=== PATIENT | male | born 1995 | race Caucasian/White ===

== ENCOUNTER 2017-07-15 21:36 | Emergency (ER) | payer OTHER ==
[2017-07-15] MEDS ORDERED: LORazepam 1 MG TAB PO ONE (22:15)
--- NOTE | 2017-07-15 22:27 | EDPHY ---
H & P Stated Complaint: SI Source: Patient, EMS Exam Limitations: No limitations - Medical/Surgical History Other PMH: hx DM, bipolar, SI Time Seen by Provider: 07/15/17 21:52 HPI/ROS: HPI The patient presents with suicidal ideation, brought in on a M1 hold placed by [place] [employer] just prior to arrival. His roommate and girlfriend called the police because the patient was holding a gun to his head. He said he was just playing with the gone and it was unloaded, however he had gone to load the gone and that is when the roommate called 911. The patient says that he feels suicidal almost daily for many years. He does think his suicidal thoughts have been increasing lately. He thinks about jumping off of a bridge or shooting himself. He says he has multiple psychiatric diagnoses including anxiety, depression, bipolar, PTSD, dissociated identity disorder. He was initially diagnosed at about 12 years old when he had a suicide attempt. He has been hospitalized in psychiatric facilities before, last in March of this year. He is not currently on any psychiatric medications as he believes they do not help him though does take Ativan p.r.n.. Last night he does report that he had a severe panic attack that awoke him from sleep. He denies any alcohol or drug use. He is currently establishing himself with [facility] and has upcoming psychologist and psychiatrist appointments. He reports a baseline resting heart rate of 110-130 beats per minute. REVIEW OF SYSTEMS Constitutional: No fever, no chills. Eyes: No discharge. ENT: No sore throat. Cardiovascular: No chest pain, no palpitations. Respiratory: No cough, no shortness of breath. Gastrointestinal: No abdominal pain, no vomiting. Genitourinary: No hematuria. Musculoskeletal: No back pain. Skin: No rashes. Neurological: No headache. 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, relocated to [place] from [place] in April, lives with a roommate PHYSICAL General Appearance: Alert, no distress Eyes: Pupils equal and round no pallor or injection ENT, Mouth: Mucous membranes moist Respiratory: There are no retractions, lungs are clear to auscultation Cardiovascular: Tachycardic with regular rhythm Gastrointestinal: Abdomen is soft and non-tender, no masses, bowel sounds normal Neurological: A&O, moves all extremities Skin: Warm and dry, no rashes Musculoskeletal: Neck is supple non tender Extremities: symmetrical, full range of motion Psychiatric: Patient is oriented X 3, there is no agitation (Meghna Lucero) Constitutional: Initial Vital Signs Temperature (C) 36.9 C 07/15/17 21:40 Heart Rate 144 H 07/15/17 21:40 Respiratory Rate 18 07/15/17 21:40 Blood Pressure 125/88 H 07/15/17 21:40 O2 Sat (%) 94 07/15/17 21:40 O2 Delivery Mode Room Air Allergies/Adverse Reactions: erythromycin base Allergy (Mild, Verified 07/15/17 21:55) Home Medications: Medication Instructions Recorded Ativan 07/15/17 Medical Decision Making ED Course/Re-evaluation: 11am The patient accepted at [facility] by Tania Sepulveda. He also needs his insulin pump refilled which we will discuss with pharmacy and here in the department. 2:15 p.m. psychiatric facility accepting the patient requested that he receive insulin and not be transferred until his glucose is below 250. His repeat glucose is still elevated. He will give himself another bolus through his pump. He does not have an anion gap. 2:55 p.m. the patient took another 5 unit bolus of subcu insulin. This time will not feed him as well. Will recheck it otherwise he is medically cleared for psychiatric hospitalization. Care transferred to Dr. Erin Reilly at shift change. (Deonte Matute) 3:00 p.m.-I assumed care of this patient at shift change. 4 p.m.-Accepted to [facility]. (Erin Reilly) Differential Diagnosis: This is a 21-year-old male with history of type 1 diabetes on insulin pump, psychiatric disease with anxiety and depression, who presents from home brought in by ambulance on an M1 hold placed by police prior to arrival for suicidal ideation. The patient's roommate called the police because he was playing with a gun, pointing at at his head and she was concerned that he was going to commit suicide. On exam, the patient is notably tachycardic at about 140. He otherwise has a normal physical exam. He does tell me that his heart rate is normally 110-130 and he suspects this is due to his anxiety. I have offered him a dose of Ativan and he would like to take this. I will give him p. O. Fluids to begin with. Laboratories were checked and were unremarkable except for UA positive for benzodiazepines. The patient does take Ativan p.r.n.. His glucose is 155. He is medically clear. 6:45 a.m.- Patient has been stable throughout the night. He was able to rest. His tachycardia resolved. He is awaiting mental health evaluation this morning by [facility]. The case will be signed out to the oncoming provider Dr. Matute pending evaluation. (Meghna Lucero) - Data Points Laboratory Results: Laboratory Results 07/15/17 21:10 07/16/17 13:44 07/16/17 07/16/17 07/16/17 15:55 13:44 12:20 Smear Review By Sodium 141 mEq/L mEq/L (135-145) Potassium 4.1 mEq/L mEq/L (3.5-5.2) Chloride 105 mEq/L mEq/L (97-110) Carbon Dioxide 26 mEq/l mEq/l (22-31) Anion Gap 10 mEq/L mEq/L (8-16) BUN 15 mg/dL mg/dL (7-23) Creatinine 0.8 mg/dL mg/dL (0.7-1.3) Estimated GFR > 60 Glucose 298 mg/dL H mg/dL (70-100) POC Glucose 170 mg/dL H mg/dL 340 mg/dL H mg/dL (70-100) (70-100) Calcium 9.0 mg/dL mg/dL (8.5-10.4) 07/16/17 07/15/17 11:42 21:10 Smear Review By Jeniffer PEARSON MD Sodium Potassium Chloride Carbon Dioxide Anion Gap BUN Creatinine Estimated GFR Glucose POC Glucose 299 mg/dL H mg/dL (70-100) Calcium Medications Given: Discontinued Medications Insulin Human Lispro (Humalog Lispro) 0 unit SC EDNOW ONE Stop: 07/16/17 11:31 Last Admin: 07/16/17 11:35 Dose: 100 unit Lorazepam (Ativan) 1 mg PO EDNOW ONE Stop: 07/15/17 22:16 Last Admin: 07/15/17 22:20 Dose: 1 mg Point of Care Test Results: 07/16/17 07/16/17 07/16/17 11:42 12:20 15:55 POC Glucose 299 H 340 H 170 H Departure - Departure Disposition: Other Psych, Not [place] Clinical Impression: Suicidal ideation, Tachycardia, Hyperglycemia Diabetes mellitus Qualifiers: Diabetes mellitus type: type 1 Diabetes mellitus complication status: without complication Qualified Code(s): E10.9 - Type 1 diabetes mellitus without complications Condition: Fair Referrals: NONE *PRIMARY CARE P,. [Primary Care Provider] - As per Instructions
[2017-07-15 23:02] LABS: PLATELET COUNT 254 10^3/uL (150-400)
[2017-07-16] MEDS ORDERED: INSULIN LISPRO 100 UNIT/ML SC ONE ×2 (11:16→11:30)
[2017-07-16] MEDS ORDERED: [UNRECOGNIZED DRUG - OTHER] SC ONE (11:30)
[2017-07-16 15:53] VITALS: BP 130/77
== END 2017-07-16 17:21 ==
LOC: EEVIPCON 21:36
DX: R45.851 Suicidal ideations (principal); E10.65 Type 1 diabetes mellitus with hyperglycemia; R00.0 Tachycardia, unspecified
CPT/HCPCS: 80305; G0480; J1815